=== PATIENT | male | born 1950 | race African-American/Black ===

== ENCOUNTER 2018-08-19 08:38 | Day surgery (SDC) | payer OTHER ==
[~2018-08-19] VITALS: Ht 180.3 cm; Wt 72.0 kg
[~2018-08-19 08:38] MED LIST: ASPIRIN BABY; LEVOTHYROXINE; LISINOPRIL; PROSTATE MEDS; SIMVASTATIN
[2018-08-19 10:05] VITALS: Ht 180.3 cm; Wt 72.0 kg
[2018-08-19 10:12] VITALS: BP 124/67; PULSE 52; RESP 16
[2018-08-19] MEDS ORDERED: AMLODIPINE (10:18)
--- NOTE | 2018-08-19 10:32 | PREAC ---
Date/Time of Note Date/Time of Note DATE: 08/19/18 TIME: 10:30 Anesthesia Eval and Record Evaluation Time Pre-Procedure Interview DATE: 08/19/18 TIME: 10:30 Age 68 Sex male NPO: 8 hrs Preoperative diagnosis Hx of Colon Cancer Planned procedure Colonoscopy Past Medical History Past Medical History: Includes Cardio: HTN, Dyslipidemia Endo: Hypothyroid Renal: Other (BPH) GI: Other (colon cancer s/p partial colectomy mar 2018) Surgery & Anesthesia Issues No known issue Meds Anticoagulation: No Beta Ivanna within 24 hr: No Reason Beta Ivanna not given: Pt. not on B-Ivanna Reported Medications [Amlodipine] No Conflict Check 08/19/18 [Prostate Meds X2] No Conflict Check 03/06/18 [Aspirin Baby] No Conflict Check 03/06/18 [Levothyroxine] No Conflict Check 03/06/18 [Simvastatin] No Conflict Check 03/06/18 [Lisinopril] No Conflict Check 03/06/18 Meds reviewed: Yes Allergies Coded Allergies: No Known Allergy (Unverified , 03/06/18) Allergies Reviewed: Yes Labs/Studies Labs Reviewed: Reviewed by anesthesiologist test: N/A Studies: ECG (n/a), CXR (n/a) Pre-procedure Exam Last vitals Vital Signs Date Temp Pulse Resp B/P (MAP) Pulse Ox O2 O2 Flow FiO2 Time Delivery Rate 08/19/18 97.1 52 16 124/67 98 Room Air 10:12 (86) Airway: Adequate mouth opening, Adequate thyromental dist Mallampati: Mallampati II Teeth: Normal Lung: Normal Heart: Normal ASA Physical Status ASA physical status: 3 Emergency: None Planned Anesthetic General/MAC: MAC Planned Pain Management Parenteral pain med Pre-operative Attestations Prior to commencing anesthesia and surgery, the patient was re-evaluated, there was verification of: *The patient's identity *The results of appropriate recent lab work and preoperative vital signs *The above evaluation not changing prior to induction *Anesthetic plan, risk benefits, alternative and complications discussed with patient/family; questions answered; patient/family understands, accepts and wishes to proceed. KOBY KOCH MD Aug 19, 2018 10:32
[2018-08-19] MEDS ORDERED: PROPOFOL 40 ML ONE (11:07)
[2018-08-19 11:41] VITALS: BP 129/69; RESP 16
== END 2018-08-19 12:45 | disposition home or self-care (01) ==
LOC: GIL 08:38
PROVIDERS: ATTEND Internal Medicine Gastroenterology
DX: Z12.11 Encounter for screening for malignant neoplasm of colon (principal); K64.8 Other hemorrhoids; D12.5 Benign neoplasm of sigmoid colon; D12.3 Benign neoplasm of transverse colon; I10 Essential (primary) hypertension; E78.5 Hyperlipidemia, unspecified; E03.9 Hypothyroidism, unspecified; Z79.82 Long term (current) use of aspirin
CPT/HCPCS: 88305